=== PATIENT | female | born 1995 | race African-American/Black ===

== ENCOUNTER 2017-03-05 18:44 | Emergency (ER) | payer OTHER ==
[~2017-03-05] VITALS: Ht 157.5 cm; Wt 82.1 kg
[2017-03-05 18:58] VITALS: BP 116/93
[2017-03-05] MEDS ORDERED: ALBU8.5H8 INH (19:31)
[2017-03-05] MEDS ORDERED: MONT10TA9 PO (19:32)
[2017-03-05 19:50] LABS: BILIRUBIN,URINE NEG (NEG); CLARITY,URINE HAZY; COLOR,URINE YELLOW; GLUCOSE,URINE NEG (NEG); NITRITE,URINE NEG (NEG); UROBILINOGEN,URINE 0.2 mg/dL (0.2 mg/dL)
[2017-03-05 19:51] LABS: BACTERIA,URINE 0 /HPF (0-FEW); SQUAMOUS EPITHELIAL CELL,UR MOD /LPF
--- NOTE | 2017-03-05 19:52 | PHYS DOC ---
Past History Past Medical History: Asthma Past Surgical History: Other Alcohol Use: Occasionally Drug Use: None Adult General Chief Complaint Chief Complaint: ABDOMINAL PAIN HPI HPI Patient is a 21 year old female who presents with pelvic pain. The patient reports 1 week history of left pelvic pain. She states it is worse when she has urge to urinate or have a bowel movement. She denies associated fevers/ chills, nausea, vomiting, diarrhea, constipation, dysuria, hematuria, vaginal bleeding, discharge. She takes control. Denies past medical history or abdominal surgeries. Review of Systems Review of Systems Constitutional: Denies fever or chills Eyes: Denies change in visual acuity HENT: Denies nasal congestion or sore throat Respiratory: Denies cough or shortness of breath Cardiovascular: Denies chest pain or edema GI: Reports abdominal pain, denies nausea, vomiting, or diarrhea : Denies dysuria or hematuria Musculoskeletal: Denies back pain or joint pain Integument: Denies rash or skin lesions Neurologic: Denies headache, focal weakness or sensory changes All other systems were reviewed and found to be within normal limits, except as documented in this note. Allergies Allergies Allergies Coded Allergies Type Severity Reaction Last Updated Verified amoxicillin Allergy Unknown 03/05/17 Yes Physical Exam Physical Exam Constitutional: Well developed, well nourished, no acute distress, non-toxic appearance. HENT: Normocephalic, atraumatic, bilateral external ears normal, oropharynx moist, nose normal. Eyes: conjunctiva normal, no discharge. Cardiovascular: RRR, no murmurs, no edema. Lungs & Thorax: LCTAB, no wheezing, no respiratory distress. Abdomen: soft, left lower quadrant/pelvic tenderness without rebound/guarding, no masses or pulsatile masses, nondistended. : normal appearing female external genitalia, normal cervix with closed os, no CMT, +left adnexal tenderness without mass, no right adnexal tenderness. Skin: Warm, dry, no erythema, no rash. Back: No CVA tenderness. Extremities: No tenderness, no edema. Neurologic: Alert and oriented X 3, no focal deficits noted. Psychologic: Affect normal, judgement normal, mood normal. Current Patient Data Vital Signs Vital Signs Date Time Temp Pulse Resp B/P (MAP) Pulse Ox O2 Delivery O2 Flow Rate FiO2 03/05/17 18:58 98.5 86 20 99 EKG EKG [] Radiology/Procedures Radiology/Procedures PROCEDURE: PELVIS COMPLETE History: Left-sided pelvic pain. Transabdominal and transvaginal Ultrasound imaging of the pelvis was performed. Comparison: None. LMP: 02/25/2017 G 0 Findings: The uterus is anteverted in position and normal in appearance. The uterus measures 7.1 x 4.8 x 3.1 cm. The endometrium measures 0.4 cm in thickness. The right ovary measures 3.2 x 1.6 x 1.6 cm. The left ovary measures 5.0 x 4.9 x 4.5 cm with a 4.5 x 4.2 x 4.0 cm left ovarian cyst . Normal bilateral ovarian vascular flow. No adnexal masses or free fluid were identified. Impression: 4.5 x 4.2 x 4.0 cm left ovarian cyst. Finding is most likely physiologic given patient's age. This could be followed up in 6 weeks with ultrasound if clinically indicated. Electronically signed by: Efren Polanco MD (03/05/2017 9:11 PM) [facility] DICTATED AND SIGNED BY: EFREN POLANCO MD DATE: 03/05/172105[] Course & Med Decision Making Course & Med Decision Making Pertinent Labs and Imaging studies reviewed. (See chart for details) The patient presents with pelvic pain. UA unremarkable, UCG negative, ultrasound shows ovarian cyst. Patient's pain well controlled, she declined medication here. Recommend rest, heating pad, scheduled ibuprofen, follow up with her own community health director or with Dr. Evans at [place]. Come back for high fever, severe pain, uncontrolled vomiting, any otherwise worsening condition. Discharged home in stable condition. [] Dragon Disclaimer Dragon Disclaimer This electronic medical record was generated, in whole or in part, using a voice recognition dictation system. Departure Departure: Impression: Primary Impression: Ovarian cyst Disposition: 01 HOME, SELF-CARE Condition: STABLE Referrals: [facility] Patient Instructions: Ovarian Cyst, [id number] Additional Instructions: You were seen in the emergency department today for ovarian cyst. It is 4.5 cm in diameter. Please rest, drink fluids, take ibuprofen 600 mg every 8 hours, use a heating pad. Follow up with your community health director or with Dr. Evans at [place] in about a week. Come back for high fever, severe pain, uncontrolled vomiting, any otherwise worsening condition. Problem Qualifiers Primary Impression: Ovarian cyst Laterality: left Qualified Codes: N83.202 - Unspecified ovarian cyst, left side DEB AVINA MD Mar 05, 2017 19:52
--- NOTE | 2017-03-05 21:14 | RAD ---
History: Left-sided pelvic pain. Transabdominal and transvaginal Ultrasound imaging of the pelvis was performed. Comparison: None. LMP: 02/25/2017 G 0 Findings: The uterus is anteverted in position and normal in appearance. The uterus measures 7.1 x 4.8 x 3.1 cm. The endometrium measures 0.4 cm in thickness. The right ovary measures 3.2 x 1.6 x 1.6 cm. The left ovary measures 5.0 x 4.9 x 4.5 cm with a 4.5 x 4.2 x 4.0 cm left ovarian cyst . Normal bilateral ovarian vascular flow. No adnexal masses or free fluid were identified. Impression: 4.5 x 4.2 x 4.0 cm left ovarian cyst. Finding is most likely physiologic given patient's age. This could be followed up in 6 weeks with ultrasound if clinically indicated. Electronically signed by: Efren Badillo MD (03/05/2017 9:11 PM) [facility]
[2017-03-07 23:13] LABS: CHLAMYDIA PROBE Negative (Negative)
== END 2017-03-05 21:46 | disposition home or self-care (01) ==
LOC: ER 18:44
DX: N83.202 Unspecified ovarian cyst, left side (principal); J45.909 Unspecified asthma, uncomplicated; Z88.1 Allergy status to other antibiotic agents
CPT/HCPCS: 36415; 76856; 81001; 81025; 87491; 87591; 99285; Q0111

== ENCOUNTER 2018-03-05 19:11 | Emergency (ER) | payer OTHER ==
[~2018-03-05] VITALS: Ht 157.5 cm; Wt 79.4 kg
[~2018-03-05 19:11] MED LIST: ALBU8.5H8 INH; IBUP800T19 PO; MONT10TA9 PO
[2018-03-05 19:15] VITALS: BP 116/78
--- NOTE | 2018-03-05 19:53 | PHYS DOC ---
Adult General Chief Complaint Chief Complaint wrist pain HPI HPI 22 years old female presented to the emergency department with right wrist pain after fall she tried to catch herself with her extended arm pain started yesterday after fall been constant she is able to move it in all direction Review of Systems Review of Systems Constitutional: Denies fever or chills [] Eyes: Denies change in visual acuity, redness, or eye pain [] HENT: Denies nasal congestion or sore throat [] Respiratory: Denies cough or shortness of breath [] Cardiovascular: No additional information not addressed in HPI [] GI: Denies abdominal pain, nausea, vomiting, bloody stools or diarrhea [] : Denies dysuria or hematuria [] Musculoskeletal: Denies back pain or joint pain [] Integument: Denies rash or skin lesions [] Neurologic: Denies headache, focal weakness or sensory changes [] Endocrine: Denies polyuria or polydipsia [] All other systems were reviewed and found to be within normal limits, except as documented in this note. Allergies Allergies Allergies Coded Allergies Type Severity Reaction Last Updated Verified amoxicillin Allergy Unknown 03/05/17 Yes Physical Exam Physical Exam Constitutional: Well developed, well nourished, no acute distress, non-toxic appearance. [] HENT: Normocephalic, atraumatic, bilateral external ears normal, oropharynx moist, no oral exudates, nose normal. [] Eyes: PERRLA, EOMI, conjunctiva normal, no discharge. [] Neck: Normal range of motion, no tenderness, supple, no stridor. [] Cardiovascular:Heart rate regular rhythm, no murmur [] Lungs & Thorax: Bilateral breath sounds clear to auscultation [] Abdomen: Bowel sounds normal, soft, no tenderness, no masses, no pulsatile masses. [] Skin: Warm, dry, no erythema, no rash. [] Back: No tenderness, no CVA tenderness. [] Extremities: No tenderness, no cyanosis, no clubbing, ROM intact, no edema. [] Neurologic: Alert and oriented X 3, normal motor function, normal sensory function, no focal deficits noted. [] Psychologic: Affect normal, judgement normal, mood normal. [] Current Patient Data Vital Signs Vital Signs Date Time Temp Pulse Resp B/P (MAP) Pulse Ox O2 Delivery O2 Flow Rate FiO2 03/05/18 19:15 97.9 87 18 98 Room Air EKG EKG [] Radiology/Procedures Radiology/Procedures [] Course & Med Decision Making Course & Med Decision Making Pertinent Labs and Imaging studies reviewed. (See chart for details) [] Final Impression Final Impression [] Problems: (1) Right wrist sprain Qualifiers: Qualified Codes: S63.501A - Unspecified sprain of right wrist, initial encounter Dragon Disclaimer Dragon Disclaimer This electronic medical record was generated, in whole or in part, using a voice recognition dictation system. RENETTA LIMA MD Mar 05, 2018 19:53
--- NOTE | 2018-03-05 21:55 | RAD ---
3 views right wrist dated 03/05/2018. No comparison available. Clinical data indication: Pain after fall. FINDINGS: 3 views right wrist show normal bony alignment. No displaced fracture. No acute osseous or articular abnormality. IMPRESSION: No acute findings. Electronically signed by: Darren Pleitez MD (03/05/2018 9:52 PM) [facility]
== END 2018-03-05 20:00 | disposition home or self-care (01) ==
LOC: ER 19:11
DX: S63.501A Unspecified sprain of right wrist, initial encounter (principal); Z88.1 Allergy status to other antibiotic agents; W18.30XA Fall on same level, unspecified, initial encounter; Y93.89 Activity, other specified; Y92.89 Other specified places as the place of occurrence of the external cause; Y99.8 Other external cause status
CPT/HCPCS: 29125; 73110; 99283

== ENCOUNTER 2018-11-06 13:18 | Emergency (ER) | payer SELFPAY ==
[~2018-11-06] VITALS: Ht 157.5 cm; Wt 81.6 kg
[~2018-11-06 13:18] MED LIST changes: +ALBU2.5V8 INH; -ALBU8.5H8 INH; +MONT10TA80 PO; -MONT10TA9 PO
--- NOTE | 2018-11-06 13:41 | PHYS DOC ---
Past History Past Medical History: Asthma, Ovarian Cyst Past Surgical History: No Surgical History Alcohol Use: Rarely Drug Use: Marijuana Adult General Chief Complaint Chief Complaint: PAIN ON URINATION HPI HPI Patient is a 23 year old female who presents with complaint of dysuria. States that her symptoms started this morning at approximately 0500. Notes that she has been having burning with urination as well as increased frequency. Denies any pelvic pain, nausea, or fever. States that she's had history of urinary tract infection in the past and states her symptoms feel similar to her previous episode. States that she has been drinking cranberry juice to help with symptoms with no relief. Has not taken any other medications. States her last menstrual period was October 30, 2018. Denies any significant past medical history. Review of Systems Review of Systems Constitutional: Denies fever or chills [] Eyes: Denies change in visual acuity, redness, or eye pain [] HENT: Denies nasal congestion or sore throat [] Respiratory: Denies cough or shortness of breath [] Cardiovascular: Denies chest pain or edema[] GI: Denies abdominal pain, nausea, vomiting, bloody stools or diarrhea [] : Dysuria, increased urinary frequency[] Musculoskeletal: Denies back pain or joint pain [] Integument: Denies rash or skin lesions [] Neurologic: Denies headache, focal weakness or sensory changes [] All other systems were reviewed and found to be within normal limits, except as documented in this note. Allergies Allergies Allergies Coded Allergies Type Severity Reaction Last Updated Verified amoxicillin Allergy Unknown 03/05/17 Yes Physical Exam Physical Exam Constitutional: Alert, afebrile, no acute distress. [] HENT: Normocephalic, atraumatic, bilateral external ears normal, oropharynx moist, no oral exudates, nose normal. [] Eyes: PERRLA, EOMI, conjunctiva normal, no discharge. [] Neck: Normal range of motion, no tenderness, supple, no stridor. [] Cardiovascular:Heart rate regular rhythm, no murmur [] Lungs & Thorax: Bilateral breath sounds clear to auscultation [] Abdomen: Bowel sounds normal, soft, no tenderness, no masses, no pulsatile masses. [] Skin: Warm, dry, no erythema, no rash. [] Back: No tenderness, no CVA tenderness. [] Extremities: No tenderness, no cyanosis, no clubbing, ROM intact, no edema. [] Neurologic: Alert and oriented X 3, normal motor function, normal sensory function, no focal deficits noted. [] Current Patient Data Vital Signs Vital Signs Date Time Temp Pulse Resp B/P (MAP) Pulse Ox O2 Delivery O2 Flow Rate FiO2 11/06/18 13:33 97.8 94 20 99 Room Air Lab Results Laboratory Tests Test 11/06/18 13:38 11/06/18 13:52 Urine Collection Type Unknown Urine Color Yellow Urine Clarity Turbid Urine pH 5.5 Urine Specific [place] >=1.030 Urine Protein 30 mg/dl Urine Glucose (UA) Neg mg/dL Urine Ketones (Stick) Neg mg/dL Urine Blood Mod Urine Nitrite Neg Urine Bilirubin Neg Urine Urobilinogen Dipstick 0.2 mg/dL Urine Leukocyte Esterase Mod Urine RBC 6-10 /HPF Urine WBC >40 /HPF Urine Squamous Epithelial Cells Many /LPF Urine Bacteria Many /HPF Urine Mucus Slight /LPF Bedside Urine HCG, Qualitative hcg negative EKG EKG Not performed[] Radiology/Procedures Radiology/Procedures Not performed[] Course & Med Decision Making Course & Med Decision Making Pertinent Labs and Imaging studies reviewed. (See chart for details) Urinalysis reviewed. Findings support diagnosis of urinary tract infection. Patient started on oral Macrobid and Pyridium in the emergency department. We'll continue on seven-day course of Macrobid for treatment of urinary tract infection. Advised follow-up with primary doctor in 5 days if symptoms are not improving and return to emergency department for any worsening symptoms. Patient was understanding and in agreement with treatment plan.[] Dragon Disclaimer Dragon Disclaimer This electronic medical record was generated, in whole or in part, using a voice recognition dictation system. Departure Departure: Impression: Primary Impression: Urinary tract infection Disposition: HOME, SELF-CARE Condition: STABLE Referrals: SARAH GIBBS MD (PCP) Patient Instructions: Urinary Tract Infection Additional Instructions: Follow-up with your primary doctor in 5 days for reevaluation. Return to the emergency department for any worsening symptoms. Scripts Phenazopyridine Hcl (PYRIDIUM) 100 Mg Tablet 100 MG PO TID, #6 TAB Prov: ROSITA MORGAN MD 11/06/18 Nitrofurantoin Monohyd/M-Cryst (MACROBID 100 MG CAPSULE) 100 Mg Capsule 1 CAP PO BID, #14 CAP Prov: ROSITA MORGAN MD 11/06/18 Problem Qualifiers Primary Impression: Urinary tract infection Urinary tract infection type: acute cystitis Hematuria presence: without hematuria Qualified Codes: N30.00 - Acute cystitis without hematuria ROSITA MORGAN MD Nov 06, 2018 13:41
[2018-11-06 14:40] LABS: BILIRUBIN,URINE NEG (NEG); CLARITY,URINE TURBID; COLOR,URINE YELLOW; GLUCOSE,URINE NEG (NEG); NITRITE,URINE NEG (NEG); UROBILINOGEN,URINE 0.2 mg/dL (0.2 mg/dL)
[2018-11-06 14:41] LABS: BACTERIA,URINE MANY /HPF (0-FEW); SQUAMOUS EPITHELIAL CELL,UR MANY /LPF; WBC,URINE >40 /HPF (0-4)
[2018-11-06] MEDS ORDERED: NITR100C62 PO (14:50)
[2018-11-06] MEDS ORDERED: PHEN100T82 PO (14:50)
[2018-11-06] MEDS ORDERED: PHENAZOPYRIDINE 100 MG TABLET. ONE (14:51)
[2018-11-06] MEDS ORDERED: NITROFURANTOIN MONOHYD/M-CRYST 100 MG CAPSULE. PO ONE ×2 (14:52→15:00)
[2018-11-06 14:58] VITALS: BP 119/75
[2018-11-06] MEDS ORDERED: PHENAZOPYRIDINE 100 MG TABLET. PO ONE (15:00)
== END 2018-11-06 15:00 | disposition home or self-care (01) ==
LOC: ER 13:18
DX: N30.00 Acute cystitis without hematuria (principal); Z87.440 Personal history of urinary (tract) infections; J45.909 Unspecified asthma, uncomplicated; Z88.1 Allergy status to other antibiotic agents
CPT/HCPCS: 81001; 81025; 87086; 99284

== ENCOUNTER 2018-11-22 12:35 | Emergency (ER) | payer SELFPAY ==
[~2018-11-22] VITALS: Ht 157.5 cm; Wt 81.6 kg
[~2018-11-22 12:35] MED LIST changes: +NITR100C62 PO; +PHEN100T82 PO
[2018-11-22 12:53] VITALS: BP 124/81
--- NOTE | 2018-11-22 13:05 | PHYS DOC ---
Past History Past Medical History: No Pertinent History, UTI Past Surgical History: No Surgical History Smoking: Non-smoker Alcohol Use: None Drug Use: None Adult General Chief Complaint Chief Complaint: PAIN ON URINATION HPI HPI Patient is a 23-year-old female presents with dysuria that started yesterday. Is like her previous urinary tract infections. No back pain or flank pain. No fever. No home medicines. There is some urgency and frequency as well. She was treated for urinary tract infection approximately 2 weeks ago. She is actually active, one partner, denies any vaginal bleeding or discharge. Symptoms are mild to moderate. No hematuria is present.[] Review of Systems Review of Systems Constitutional: Denies fever or chills [] Eyes: Denies change in visual acuity, redness, or eye pain [] HENT: Denies nasal congestion or sore throat [] Respiratory: Denies cough or shortness of breath [] Cardiovascular: No chest pain or palpitations[] GI: Denies abdominal pain, nausea, vomiting, bloody stools or diarrhea [] : See history of present illness[] Musculoskeletal: Denies back pain or joint pain [] Integument: Denies rash or skin lesions [] Neurologic: Denies headache, focal weakness or sensory changes [] Endocrine: Denies polyuria or polydipsia [] All other systems were reviewed and found to be within normal limits, except as documented in this note. Allergies Allergies Allergies Coded Allergies Type Severity Reaction Last Updated Verified amoxicillin Allergy Unknown 03/05/17 Yes Physical Exam Physical Exam Constitutional: Well developed, well nourished, no acute distress, non-toxic appearance. [] HENT: Normocephalic, atraumatic, bilateral external ears normal, oropharynx moist, no oral exudates, nose normal. [] Eyes: PERRLA, EOMI, conjunctiva normal, no discharge. [] Neck: Normal range of motion, no tenderness, supple, no stridor. [] Cardiovascular:Heart rate regular rhythm, no murmur [] Lungs & Thorax: Bilateral breath sounds clear to auscultation [] Abdomen: Bowel sounds normal, soft, no tenderness, no masses, no pulsatile masses. [] Skin: Warm, dry, no erythema, no rash. [] Back: No tenderness, no CVA tenderness. [] Extremities: No tenderness, no cyanosis, no clubbing, ROM intact, no edema. [] Neurologic: Alert and oriented X 3, normal motor function, normal sensory function, no focal deficits noted. [] Psychologic: Affect normal, judgement normal, mood normal. [] Current Patient Data Vital Signs Vital Signs Date Time Temp Pulse Resp B/P (MAP) Pulse Ox O2 Delivery O2 Flow Rate FiO2 11/22/18 12:53 98.5 101 16 100 Room Air EKG EKG [] Radiology/Procedures Radiology/Procedures [] Course & Med Decision Making Course & Med Decision Making Pertinent Labs and Imaging studies reviewed. (See chart for details) ED course: Patient arrived, was placed in bed, and tolerated exam well. She was able to provide a urine sample. Review of records from last ER visit, she was placed on Macrodantin, and the Escherichia coli was sensitive to this. Also sending a urine test for gonorrhea and chlamydia. Discussed findings and plan with patient. All questions were answered. She was discharged in improved condition.[] Dragon Disclaimer Dragon Disclaimer This electronic medical record was generated, in whole or in part, using a voice recognition dictation system. Departure Departure: Impression: Primary Impression: Urinary tract infection Disposition: HOME, SELF-CARE Condition: IMPROVED Referrals: SARAH GIBBS MD (PCP) Follow-up in 2 days Patient Instructions: Urinary Tract Infection Additional Instructions: Plenty of fluids. Follow-up with your regular doctor in 2 days. Return to the ER if worsening pain, fever of more than 101�, or any other concerns. Scripts Sulfamethoxazole/Trimethoprim (BACTRIM DS TABLET) 1 Each Tablet 1 TAB PO BID for UTI, #20 TAB Prov: IRMA RUSSELL DO 11/22/18 Problem Qualifiers Primary Impression: Urinary tract infection Urinary tract infection type: site unspecified Hematuria presence: without hematuria Qualified Codes: N39.0 - Urinary tract infection, site not specified IRMA RUSSELL DO Nov 22, 2018 13:05
[2018-11-22] MEDS ORDERED: SULF1TAB24 PO (14:02)
[2018-11-22 17:00] LABS: BILIRUBIN,URINE NEG (NEG); CLARITY,URINE CLEAR; COLOR,URINE YELLOW; GLUCOSE,URINE NEG (NEG); NITRITE,URINE NEG (NEG); UROBILINOGEN,URINE 0.2 mg/dL (0.2 mg/dL)
== END 2018-11-22 14:28 | disposition home or self-care (01) ==
LOC: ER 12:35
DX: R30.0 Dysuria (principal); N39.0 Urinary tract infection, site not specified; Z87.440 Personal history of urinary (tract) infections; Z88.1 Allergy status to other antibiotic agents
CPT/HCPCS: 36415; 81003; 87491; 87591; 99284